=== PATIENT | female | born 1990 | race Caucasian/White ===

== ENCOUNTER 2017-10-25 00:22 | Emergency (ER) | payer MEDICAID, OTHER ==
[2017-10-25 00:30] VITALS: BP 117/67
[2017-10-25] MEDS ORDERED: DIPH/PERTUSS(ACELL)/TETANUS VAC/PF 0.5 ML SYR (>=10YO) IM ONE (01:02)
--- NOTE | 2017-10-25 01:07 | ER Document Report ---
HPI - HPI Pain Level: 3 Notes: Patient is a 26-year-old female no significant past medical history presents ED complaining of right eye pain and redness with decreased vision status post injury around 1500 on 28 Sep (10 hours ago). Patient states that she has an ache and soreness to the eye regardless if she blinks her eyes or eye open. Patient has not noticed any discharge. Patient states that she was messing with her stapler when the spring shot out and hit her directly on her cornea/ pupil. Pt does not wear contacts. Pt does have mild photophobia with the associated symptoms and blurriness. Denies any headache, fever, neck pain, URI , sore throat, chest pain, palpitations, syncope, cough, shortness of breath, wheeze, dyspnea, abdominal pain, nausea/vomiting/diarrhea,dysuria, hematuria, or rash. - ROS Notes: REVIEW OF SYSTEMS: CONSTITUTIONAL : Denies fever, chills, or sweats. Denies recent illness. EENT: see hpi CARDIOVASCULAR: Denies chest pain. Denies palpitations or racing or irregular heart beat. RESPIRATORY: Denies cough, cold, or chest congestion. Denies shortness of breath, difficulty breathing, or wheezing. GASTROINTESTINAL: Denies abdominal pain or distention. Denies nausea, vomiting , or diarrhea. GENITOURINARY: Denies difficulty urinating, painful urination, burning, frequency, blood in urine, or discharge. MUSCULOSKELETAL: Denies back or neck pain or stiffness. Denies joint pain or swelling. SKIN: Denies rash, lesions or sores. NEUROLOGICAL: Denies confusion or altered mental status. Denies passing out or loss of consciousness. Denies dizziness or lightheadedness. Denies headache. Denies weakness or paralysis or loss of use of either side. Denies problems with gait or speech. Denies sensory loss, numbness, or tingling. ALL OTHER SYSTEMS REVIEWED AND NEGATIVE. Dictation was performed using [employer] voice recognition software - CONSTITUTIONAL Constitutional: DENIES: Fever, Chills - EENT EENT: REPORTS: Eye problems - R eye. DENIES: Sore Throat, Ear Pain - NEURO Neurology: DENIES: Headache, Weakness, Vision blurred, Dizzinesss / Vertigo - CARDIOVASCULAR Cardiovascular: DENIES: Chest pain - RESPIRATORY Respiratory: DENIES: Trouble Breathing, Coughing - GASTROINTESTINAL Gastrointestinal: DENIES: Abdominal Pain, Black / Bloody Stools - URINARY Urinary: DENIES: Dysuria, Urgency, Frequency - REPRODUCTIVE Reproductive: DENIES: : - MUSCULOSKELETAL Musculoskeletal: DENIES: Extremity pain Past Medical History - Social History Smoking Status: Unknown if Ever Smoked Family History: Reviewed & Not Pertinent Patient has suicidal ideation: No Patient has homicidal ideation: No Renal/ Medical History: Denies: Hx Peritoneal Dialysis Psychiatric Medical History: Reports: Hx Anxiety, Hx Depression - Immunizations Hx Diphtheria, Pertussis, Tetanus Vaccination: No Vertical Provider Document - CONSTITUTIONAL Agree With Documented VS: Yes Notes: PHYSICAL EXAMINATION: GENERAL: Well-appearing, well-nourished and in no acute distress. HEAD: Atraumatic, normocephalic. EYES: Pupils equal round and reactive to light, extraocular movements intact, sclera anicteric, conjunctiva of rt eye injected. No surrounding cellulitis or erythema. No palp tenderness to the orbit or direct pressure to the eye. + abrasion on wood's lamp/flourescein. No obvious foreign body or other uptake noted. No hyphema. Pressure averages at 15 with 95% on tonometry. ENT: EAC clear b/l. TM's intact b/l without erythema, fluid, or perforation. Nares patent and without discharge. oropharynx clear without exudates. No tonsilar hypertrophy or erythema. Moist mucous membranes. No sinus tenderness. NECK: Normal range of motion, supple without lymphadenopathy LUNGS: Breath sounds clear to auscultation bilaterally and equal. No wheezes rales or rhonchi. HEART: Regular rate and rhythm without murmurs, rubs, gallops. Extremities: No cyanosis, clubbing, or edema b/l. Peripheral pulses 2+. Capillary refill less than 3 seconds. NEUROLOGICAL: Cranial nerves grossly intact. Normal speech, normal gait. Normal sensory, motor exams PSYCH: Normal mood, normal affect. SKIN: Warm, Dry, normal turgor, no rashes or lesions noted. - INFECTION CONTROL TRAVEL OUTSIDE OF THE [place].S. IN LAST 30 DAYS: No - RESPIRATORY O2 Sat by Pulse Oximetry: 98 Course - Re-evaluation Re-evalutation: 10/25/17 01:23 Patient is an afebrile, well-hydrated, 26-year-old female who presents to the ED with a corneal abrasion to the right eye. Vitals are stable. PE is otherwise unremarkable. Tonometry average to 15. PERRLA. I did review case with Dr. Covarrubias and Dr. Dalton (Ophthal). Low suspicion for any retained corneal or lid foreign body, deep space infection including orbital cellulitis/ abscess, acute glaucoma, penetrating globe injury, retinal detachment, meningitis, sepsis, fracture, compartment syndrome. I will send home with a prescription for Cipro drops to use as directed. Conservative measures otherwise for symptoms with proper handwashing. Recheck with your PCM in 3-5 days. F/u tomorrow afternoon at [address] Dalton. Return to the ED with any worsening/concerning symptoms otherwise as reviewed in discharge. Patient is in agreement. - Vital Signs Vital signs: Temp Pulse Resp BP Pulse Ox 98.6 F 70 16 117/67 98 10/25/17 00:26 10/25/17 00:26 10/25/17 00:26 10/25/17 00:26 10/25/17 00:26 Procedures - Eye Procedure Right Time completed: 01:15 Eye Irrigated w/ Saline (ccs): 20 Alcaine Drops Administered: Yes Fluorescein applied: Right Notes: 10/25/17 01:25 I was irrigated and lid was everted and wiped Tetracaine was used for anesthesia Fluorescein stain and Wood's lamp utilized which found a corneal abrasion without any other obvious uptake or foreign body appreciated Tonometry was utilized and found an avg pressure of 15 Eyes picture: 1 - abrasion/uptake 2 - abrasion/uptake Discharge - Discharge Clinical Impression: Corneal abrasion Qualifiers: Encounter type: initial encounter Laterality: right Qualified Code(s): S05.01XA - Injury of conjunctiva and corneal abrasion without foreign body, right eye, initial encounter Condition: Stable Disposition: HOME, SELF-CARE Instructions: Corneal Abrasion ([facility]) Additional Instructions: keep eyes clean Avoid scratching/touching eyes Wash hands regularly Use eye drops as directed Maintain adequate fluid intake tylenol/ibuprofen as needed F/u: with Dr. Dalton (Ophthalmology) tomorrow afternoon around 3pm. Return to the ED with any worsening symptoms and/or development of fever, headache, changes in vision, eye pain, worsening eye redness, redness around the eyes, purulent discharge, sore throat, facial swelling, neck pain/stiffness , chest pain, palpitations, syncope, shortness of breath, trouble breathing, abdominal pain, n/v/d, blood in stool/urine, dysuria, or other worsening symptoms that are concerning to you. Prescriptions: Ciprofloxacin HCl [Ciloxan 0.3% Oph Soln 2.5 ml] 1 - 2 drop OP Q2H #1 bottle Referrals: GLEN DALTON DO [ACTIVE STAFF] - Follow up tomorrow
== END 2017-10-25 01:30 | disposition home or self-care (01) ==
LOC: EEVIPCON 00:22 → ER 00:22
DX: S05.01XA Injury of conjunctiva and corneal abrasion without foreign body, right eye, initial encounter (principal); W20.8XXA Other cause of strike by thrown, projected or falling object, initial encounter; Y93.89 Activity, other specified
CPT/HCPCS: 90471; 90715; 99283

== ENCOUNTER 2019-01-22 14:03 | Emergency (ER) | payer MEDICAID ==
[2019-01-22 14:11] VITALS: BP 122/71
--- NOTE | 2019-01-22 14:40 | ER Document Report ---
ED Medical Screen (RME) - General Chief Complaint: Abdominal Pain Stated Complaint: BACK PAIN Time Seen by Provider: 01/22/19 14:34 Primary Care Provider: YANG VILLATORO PA-C [Primary Care Provider] - Follow up as needed Notes: 28 years old female presents today with vagina discharge which is green yellow discoloration with lower back pain. The last few days. TRAVEL OUTSIDE OF THE U.S. IN LAST 30 DAYS: No - Related Data Allergies/Adverse Reactions: Penicillins Allergy (Verified 10/08/15 06:33) Vomiting Past Medical History Renal/ Medical History: Denies: Hx Peritoneal Dialysis Psychiatric Medical History: Reports: Hx Anxiety, Hx Depression - Immunizations Hx Diphtheria, Pertussis, Tetanus Vaccination: No Physical Exam - Vital signs Vitals: Temp Pulse Resp BP Pulse Ox 98.2 F 64 16 122/71 100 01/22/19 14:08 01/22/19 14:08 01/22/19 14:08 01/22/19 14:08 01/22/19 14:08 Course - Vital Signs Vital signs: Temp Pulse Resp BP Pulse Ox 98.2 F 64 16 122/71 100 01/22/19 14:08 01/22/19 14:08 01/22/19 14:08 01/22/19 14:08 01/22/19 14:08 Doctor's Discharge - Discharge Referrals: YANG VILLATORO PA-C [Primary Care Provider] - Follow up as needed
[2019-01-22 15:07] LABS: APPEARANCE,URINE CLEAR; BILIRUBIN,URINE NEGATIVE (NEGATIVE); COLOR,URINE YELLOW; GLUCOSE, URINE NEGATIVE (NEGATIVE); KETONES,URINE NEGATIVE (NEGATIVE); LEUKOCYTE ESTERASE,URINE NEGATIVE (NEGATIVE); NITRITE,URINE NEGATIVE (NEGATIVE); PROTEIN,URINE NEGATIVE (NEGATIVE); URINE SPECIFIC GRAVITY 1.004; UROBILINOGEN,URINE NEGATIVE mg/dL (<2.0)
[2019-01-22 15:18] LABS: ABSOLUTE LYMPHOCYTES (AUTO) 2.4 10^3/uL (0.5-4.7); ABSOLUTE MONOCYTES (AUTO) 0.6 10^3/uL (0.1-1.4); ABSOLUTE NEUT (AUTO) 6.2 10^3/uL (1.7-8.2); BASOPHILS % (AUTO) 0.5 % (0-2); EOSINOPHILS % (AUTO) 0.3 % (0-6); HEMOGLOBIN 12.4 g/dL (12.0-15.5); LYMPHOCYTES % (AUTO) 25.8 % (13-45); MEAN CORPUSCULAR HEMOGLOBIN 31.3 pg (27.0-33.4); MEAN CORPUSCULAR HGB CONC 35.5 g/dL (32.0-36.0); MEAN CORPUSCULAR VOLUME 88 fl (80-97); MONOCYTES % (AUTO) 6.4 % (3-13); PLATELET COUNT 357 10^3/uL (150-450); RED BLOOD COUNT 3.96 10^6/uL (3.72-5.28); RED CELL DISTRIBUTION WIDTH 12.8 % (11.5-14.0); TOTAL CELLS COUNTED % (AUTO) 100 %; WHITE BLOOD COUNT 9.3 10^3/uL (4.0-10.5)
[2019-01-22 16:03] LABS: URINE AMPHETAMINES SCREEN NEGATIVE; URINE BARBITURATES SCREEN NEGATIVE; URINE BENZODIAZEPINES SCREEN NEGATIVE; URINE COCAINE SCREEN NEGATIVE; URINE MARIJUANA (THC) SCREEN UNCONFIRMED POSITIVE; URINE METHADONE SCREEN NEGATIVE; URINE PHENCYCLIDINE SCREEN NEGATIVE
[2019-01-22 16:19] LABS: ALANINE AMINOTRANSFERASE 16 U/L (9-52); ALBUMIN 4.3 g/dL (3.5-5.0); ALKALINE PHOSPHATASE 39 U/L (38-126); ANION GAP 8 (5-19); ASPARTATE AMINO TRANSFERASE 19 U/L (14-36); BILIRUBIN,DIRECT 0.2 mg/dL (0.0-0.4); BILIRUBIN,TOTAL 0.4 mg/dL (0.2-1.3); BLOOD UREA NITROGEN 6 mg/dL (7-20); CALCIUM 9.7 mg/dL (8.4-10.2); CARBON DIOXIDE 26 mmol/L (22-30); CHLORIDE 108 mmol/L (98-107); POTASSIUM 3.8 mmol/L (3.6-5.0); SODIUM 142.3 mmol/L (137-145); TOTAL PROTEIN 6.6 g/dL (6.3-8.2)
[2019-01-22 16:26] LABS: GLUCOSE 57 mg/dL (75-110)
[2019-01-22 17:00] LABS: T.VAGINALIS (WET MOUNT) NO TRICHOMONAS SEEN; WBCS (WET MOUNT) FEW WBCS SEEN; YEAST (WET MOUNT) NO YEAST SEEN
[2019-01-22 18:25] LABS: CHLAM PCR NOT DETECTED (NOT DETECT); GON PCR NOT DETECTED (NOT DETECT)
--- NOTE | 2019-01-22 19:13 | ER Document Report ---
ED General - General Chief Complaint: Abdominal Pain Stated Complaint: BACK PAIN Time Seen by Provider: 01/22/19 14:34 Primary Care Provider: YANG VILLATORO PA-C [NO LOCAL MD] - Follow up as needed TRAVEL OUTSIDE OF THE [place] IN LAST 30 DAYS: No - HPI Patient complains to provider of: Abdominal pain back pain Notes: Patient coming in for abdominal pain back pain. Patient states that she knows she is also. Patient has been in the past a . Patient states no care at this time. Patient states she does smoke marijuana patient denies any other past medical history does not been taking any vitamins denies any abdominal trauma denies any vaginal bleeding. Patient resting comfortably upon my evaluation. - Related Data Allergies/Adverse Reactions: Penicillins Allergy (Verified 10/08/15 06:33) Vomiting Past Medical History - Social History Smoking Status: Current Every Day Smoker Chew tobacco use (# tins/day): No Frequency of alcohol use: None Drug Abuse: Marijuana Family History: Reviewed & Not Pertinent Patient has suicidal ideation: No Patient has homicidal ideation: No Renal/ Medical History: Denies: Hx Peritoneal Dialysis Psychiatric Medical History: Reports: Hx Anxiety, Hx Depression - Immunizations Hx Diphtheria, Pertussis, Tetanus Vaccination: No Review of Systems - Review of Systems Constitutional: No symptoms reported EENT: No symptoms reported Cardiovascular: No symptoms reported Respiratory: No symptoms reported Gastrointestinal: Abdominal pain Genitourinary: No symptoms reported Female Genitourinary: Vaginal discharge Musculoskeletal: No symptoms reported Skin: No symptoms reported Hematologic/Lymphatic: No symptoms reported Neurological/Psychological: No symptoms reported -: Yes All other systems reviewed and negative Physical Exam - Vital signs Vitals: Temp Pulse Resp BP Pulse Ox 98.2 F 64 16 122/71 100 01/22/19 14:08 01/22/19 14:08 01/22/19 14:08 01/22/19 14:08 01/22/19 14:08 Interpretation: Normal - General General appearance: Appears well, Alert - HEENT Head: Normocephalic, Atraumatic Eyes: Normal Pupils: PERRL - Respiratory Respiratory status: No respiratory distress Chest status: Nontender Breath sounds: Normal Chest palpation: Normal - Cardiovascular Rhythm: Regular Heart sounds: Normal auscultation Murmur: No - Abdominal Inspection: Normal Distension: No distension Bowel sounds: Normal Tenderness: Nontender Organomegaly: No organomegaly - Back Back: Normal, Nontender - Extremities General upper extremity: Normal inspection, Nontender, Normal color, Normal ROM, Normal temperature General lower extremity: Normal inspection, Nontender, Normal color, Normal ROM, Normal temperature, Normal weight bearing. No: Edilson's sign - Neurological Neuro grossly intact: Yes Cognition: Normal Orientation: AAOx4 [place] Coma Scale Eye Opening: Spontaneous Christoph Coma Scale Verbal: Oriented [place] Coma Scale Motor: Obeys Commands Christoph Coma Scale Total: 15 Speech: Normal Motor strength normal: LUE, RUE, LLE, RLE Sensory: Normal - Psychological Associated symptoms: Normal affect, Normal mood - Skin Skin Temperature: Warm Skin Moisture: Dry Skin Color: Normal Course - Re-evaluation Re-evalutation: 01/22/19 22:36 The patient presents with abdominal pain without signs of peritonitis or other life-threatening or serious etiology. The patient appears stable for discharge and has been instructed to return immediately if the symptoms worsen in any way, or in 8-12hr if not improved for re-evaluation. The patient has been instructed to return if the symptoms worsen or change in any way. I did explain the ultrasound to the patient at bedside and answered all questions. vitamins Reglan was given for the patient during follow-up with the health department and [facility]. - Vital Signs Vital signs: Temp Pulse Resp BP Pulse Ox 98.2 F 64 16 122/71 100 01/22/19 14:08 01/22/19 14:08 01/22/19 14:34 01/22/19 14:08 01/22/19 14:08 - Laboratory Result Diagrams: 01/22/19 14:48 01/22/19 14:58 Laboratory results interpreted by me: 01/22/19 01/22/19 01/22/19 14:20 14:48 14:48 Hct 35.0 L Chloride BUN Glucose POC Glucose Beta HCG, Quant 892253.00 H Urine HCG, Qual POSITIVE H 01/22/19 01/22/19 14:58 17:00 Hct Chloride 108 H BUN 6 L Glucose 57 L POC Glucose 133 H Beta HCG, Quant Urine HCG, Qual Discharge - Discharge Clinical Impression: Qualifiers: Weeks of gestation: less than 8 weeks Qualified Code(s): Z3A.01 - Less than 8 weeks gestation of Condition: Good Disposition: HOME, SELF-CARE Instructions: Abdominal Pain ([facility]), Ob-Surveillance S[facility], Pelvic Pain in ([facility]) Additional Instructions: Your ultrasound today shows a 7-week fetus. Your testing returned negative for any signs of gonorrhea chlamydia trichomonas or yeast. More than likely the discharge that you are experiencing is physiologic normal discharge from being . I would highly recommend she follow-up with your primary care physician I recommend following up with health department or [facility] clinic listed. Please take vitamins. Please note that smoking cigarettes or marijuana can damage your fetus. I would highly recommend holding all illicit substances and tobacco use. Please make sure you drink plenty of fluids to stay well-hydrated return to the ER for any other concerns. Prescriptions: Metoclopramide HCl [Reglan] 5 mg PO Q6 #30 tablet Prenat 115/Iron Fum/Folic/Dss [ 19 Tablet] 1 each PO DAILY #30 tablet Forms: Return to Work Referrals: YANG VILLATORO PA-C [NO LOCAL MD] - Follow up as needed
--- NOTE | 2019-01-22 19:41 | RADIOLOGY REPORT (SQ) ---
EXAM DESCRIPTION: U/S OB TRANSVAG W/DOPPLER COMPLETED DATE/TIME: 01/22/2019 7:11 pm REASON FOR STUDY: +preg abdominal pain COMPARISON: None. TECHNIQUE: Transvaginal static and realtime grayscale images acquired of the pelvis. Additional lida cted spectral and color Doppler images recorded. All images stored on PACs. bHCG: Not available. CLINICAL DATES: LMP unknown. LIMITATIONS: None. FINDINGS: FETUS: Single Living intrauterine . ULTRASOUND EGA: 7 weeks 6 days ULTRASOUND BRAYDEN: 09/04/2019 EFW: Not applicable less than 20 weeks. CRL: 1.5 cm. FHR: 162. Beats per minute. SURVEY: Too early to assess. AMNIOTIC FLUID: Adequate amount. PLACENTA: Not yet developed due to early gestation. SUBCHORIONIC BLEED: No SIZE OF BLEED: Not applicable. UTERUS: No masses or anomalies. 11.2 x 7.5 x 6.2 cm. CERVICAL LENGTH: 2.6 cm. Closed. RIGHT ADNEXA: Normal ovary with normal vascular flow. 3.9 x 2.5 x 2.3 cm. There is a 1.6 cm cyst. No adnexal free fluid. No adnexal masses. LEFT ADNEXA: Normal ovary with normal vascular flow. 3.3 x 1.8 x 1.7 cm. No adnexal free fluid. No adnexal masses. FREE FLUID: None. OTHER: No other significant finding. IMPRESSION: LIVING INTRAUTERINE . EGA 7 weeks 6 days. Trimester of : First - 0 to 13 weeks. TECHNICAL DOCUMENTATION: JOB ID: [id number]- All Rights Reserved Reading location - IP/workstation name: [email or web address]
== END 2019-01-22 20:14 | disposition home or self-care (01) ==
LOC: ER 14:03
DX: O26.91 Pregnancy related conditions, unspecified, first trimester (principal); M54.9 Dorsalgia, unspecified; R10.9 Unspecified abdominal pain; O99.331 Smoking (tobacco) complicating pregnancy, first trimester; F17.200 Nicotine dependence, unspecified, uncomplicated; Z88.0 Allergy status to penicillin; Z3A.01 Less than 8 weeks gestation of pregnancy
CPT/HCPCS: 36415; 76817; 80053; 80307; 81001; 81025; 82962; 84702; 85025; 87210; 87491; 87591; 93976; 99284

== ENCOUNTER 2019-05-08 15:50 | Emergency (ER) | payer MEDICAID ==
[2019-05-08] MEDS ORDERED: HYDROCODONE/ACETAMINOPHEN 5-325 MG TABLET PO ONE (16:54)
[2019-05-08] MEDS ORDERED: PENICILLIN V POTASSIUM 500 MG TABLET PO ONE (16:54)
[2019-05-08] MEDS ORDERED: IBUPROFEN 600 MG TABLET PO ONE (16:54)
--- NOTE | 2019-05-08 16:59 | ER Document Report ---
ED General - General Chief Complaint: Toothache Stated Complaint: JAW PAIN Time Seen by Provider: 05/08/19 16:44 Primary Care Provider: ALENA ONTIVEROS MD [Primary Care Provider] - Follow up as needed Mode of Arrival: Ambulatory Information source: Patient, [facility] Records Notes: 28-year-old female presents with left upper tooth pain that started 14 hours prior to arrival waking her from sleep. Patient describes the pain as throbbing, aching and worse with drinking cold fluids. Patient denies any fever, chills, sore throat, difficulty swallowing, ear pain. TRAVEL OUTSIDE OF THE [place] IN LAST 30 DAYS: No - HPI Onset: Yesterday Onset/Duration: Sudden Quality of pain: Achy, Throbbing Severity: Moderate Pain Level: 2 Associated symptoms: denies: Nonproductive cough, Earache, Fever, Nausea, Vomiting, Shortness of breath, Sore throat Exacerbated by: Food, Other - Cold fluid Relieved by: Denies Similar symptoms previously: Yes Recently seen / treated by doctor: No - Related Data Allergies/Adverse Reactions: No Known Allergies Allergy (Unverified 05/08/19 15:52) Past Medical History - General Information source: Patient - Social History Smoking Status: Current Every Day Smoker Cigarette use (# per day): Yes - 10 Smoking Education Provided: Yes - Smoking cessation counseling was provided for 4 minutes at the bedside Frequency of alcohol use: Social Drug Abuse: None Lives with: Family Family History: Reviewed & Not Pertinent Patient has suicidal ideation: No Patient has homicidal ideation: No Renal/ Medical History: Denies: Hx Peritoneal Dialysis Psychiatric Medical History: Reports: Hx Anxiety, Hx Depression - Immunizations Hx Diphtheria, Pertussis, Tetanus Vaccination: No Review of Systems - Review of Systems Notes: REVIEW OF SYSTEMS: CONSTITUTIONAL : Denies fever, chills, or sweats. Denies recent illness. Denies weight loss, recent hospitalizations. EENT: Denies visual changes, eye pain. Denies sore throat, oral lesions, difficulty swallowing. CARDIOVASCULAR: Denies chest pain. Denies palpitations. Denies lower extremity edema. RESPIRATORY: Denies cough. Denies shortness of breath, wheezing. GASTROINTESTINAL: Denies abdominal pain or distention. Denies nausea, vomiting, or diarrhea. Denies blood in vomitus, stools, or per rectum. Denies black, tarry stools. Denies constipation. GENITOURINARY: Denies difficulty urinating, painful urination, frequency, blood in urine, or vaginal discharge. MUSCULOSKELETAL: Denies back or neck pain or stiffness. Denies joint pain or swelling. SKIN: Denies rash, lesions or sores. HEMATOLOGIC : Denies easy bruising or bleeding. LYMPHATIC: Denies swollen glands. NEUROLOGICAL: Denies confusion or altered mental status. Denies loss of consciousness. Denies dizziness or lightheadedness. Denies headache. Denies weakness or paralysis. Denies problems difficulty with ambulation, slurred speech. Denies sensory loss, numbness, or tingling. Denies seizures. PSYCHIATRIC: Denies anxiety or stress. Denies depression, suicidal ideation, or homicidal ideation. Denies visual or auditory hallucinations. Physical Exam - Vital signs Vitals: Temp Pulse Resp BP Pulse Ox 98.1 F 64 14 130/78 H 100 05/08/19 16:03 05/08/19 16:05/08/19 16:05/08/19 16:05/08/19 16:03 - Notes Notes: PHYSICAL EXAMINATION: GENERAL: Well-appearing, well-nourished and in no acute distress. HEAD: Atraumatic, normocephalic. EYES: Pupils equal round and reactive to light, extraocular movements intact, conjunctiva are normal. ENT: Nares patent, oropharynx clear without exudates. Moist mucous membranes. Dental caries of tooth 13 and 14. No associated dental abscess, no dental fracture. No sublingual edema no necrotizing gingivitis. NECK: Normal range of motion, supple without lymphadenopathy LUNGS: Breath sounds clear to auscultation bilaterally and equal. No wheezes rales or rhonchi. HEART: Regular rate and rhythm without murmurs ABDOMEN: Soft, nontender, nondistended abdomen. No guarding, no rebound. No masses appreciated. Female : deferred Musculoskeletal: Normal range of motion, no pitting or edema. No cyanosis. NEUROLOGICAL: Cranial nerves grossly intact. Normal speech, normal gait. Normal sensory, motor exams PSYCH: Normal mood, normal affect. SKIN: Warm, Dry, normal turgor, no rashes or lesions noted. Course - Re-evaluation Re-evalutation: Temp Pulse Resp BP Pulse Ox 98.1 F 64 14 130/78 H 100 05/08/19 16:03 05/08/19 16:03 05/08/19 16:03 05/08/19 16:03 05/08/19 16:03 05/08/19 16:57 28-year-old female presents with 1 day of dental pain. Vital signs reviewed and within normal limits. Patient does not appear toxic or dehydrated. She is in no acute distress. No evidence of necrotizing gingivitis, Winston's angina, dental abscess. Patient was started on Pen-Pen VK, Motrin. Advised to follow- up with dentistry. 05/08/19 16:59 After performing a Medical Screening Examination, I estimate there is LOW risk for a DEEP SPACE INFECTION (e.g., RAUL'S ANGINA OR RETROPHARYNGEAL ABSCESS), MENINGITIS, INTRACRANIAL HEMORRHAGE, or AIRWAY COMPROMISE, thus I consider the discharge disposition reasonable. Also, there is no evidence or peritonitis, sepsis, or toxicity. I have reevaluated this patient multiple times and no significant life threatening changes are noted. The patient and I have discussed the diagnosis and risks, and we agree with discharging home with close follow-up with the understanding that symptoms and presentations can change. We also discussed returning to the Emergency Department immediately if new or worsening symptoms occur. We have discussed the symptoms which are most concerning (e.g., changing or worsening pain, trouble swallowing or breathing, neck stiffness or fever) that necessitate immediate return. - Vital Signs Vital signs: Temp Pulse Resp BP Pulse Ox 98.1 F 64 14 130/78 H 100 05/08/19 16:03 05/08/19 16:03 05/08/19 16:03 05/08/19 16:03 05/08/19 16:03 Discharge - Discharge Clinical Impression: Odontalgia Condition: Good Disposition: HOME, SELF-CARE Instructions: [facility], Penicillin V K ([facility]), Toothache ([facility]) Additional Instructions: Follow up with your [id number] hours for further care or return to the ED IMMEDIATELY if symptoms worsen or you have any concerns. If you cannot afford to follow up with your primary care physician a list of low cost clinics have been provided at the end of your discharge papers as well. Most prescribed medications have multiple side effects. The safest thing to do is when filling your prescription speak to your pharmacist regarding possible interactions with your normal home medications and over the counter medications such as Ibuprofen, Tylenol, Benadryl. If you experience any symptoms that cause you discomfort or concern you should discontinue the medication immediately and return to the emergency room or call your primary care physician. You have been seen for dental pain. It is very important that you follow-up with a dentist for definitive care. Please return if you develop fever greater than 101, swelling in your face, vomiting, difficulty breathing or swallowing, or any other symptoms that are concerning to you. For pain you should take ibuprofen 600 mg every 6 hours as needed. There are some dental clinics at reduced rate. However are not in town and require travel. In [place]: [facility] will be opening a free dental clinic. Phone: In [place]: 1.[facility] (60 miles away) [address] [place] [address] [facility] For appointments, call on Mondays between the hours of 9 AM and noon. [address]. [facility] (60 miles) [address] [phone] In [place]: [facility] (42 miles away) [address] [place] [address] In [place]: [facility] [place] [facility] (53 miles away) [address] [place] [address] In [facility] clinic (173 miles away) [address] [place] [address] [facility] Referrals: ALENA ONTIVEROS MD [Primary Care Provider] - Follow up as needed
[2019-05-08 17:26] VITALS: BP 117/75
== END 2019-05-08 17:26 | disposition home or self-care (01) ==
LOC: ER 15:50
DX: K02.9 Dental caries, unspecified (principal); K08.89 Other specified disorders of teeth and supporting structures; F17.210 Nicotine dependence, cigarettes, uncomplicated; Z71.6 Tobacco abuse counseling
CPT/HCPCS: 99406; 99283; J3490 ×2

== ENCOUNTER 2020-02-10 12:23 | Emergency (ER) | payer SELFPAY ==
--- NOTE | 2020-02-10 13:50 | ER Document Report ---
ED General - General Chief Complaint: Sore Throat Stated Complaint: SORE THROAT/HARD TO SWOLLEN/VAGINAL DISCHARGE Primary Care Provider: ALENA ONTIVEROS MD [Primary Care Provider] - Follow up as needed Notes: Patient is a 29-year-old white female with no significant past medical history presents to the emergency department with a chief complaint of swollen area to the back of the tongue that is somewhat painful. She states she was concerned given her symptoms, googled them and feels that she has thrush. She states she does notice a very faint white film on her tongue and is sure that she has thrush. Patient denies history of diabetes, AIDS or HIV, oral medications such as inhaled corticosteroids. Denies any immune compromising conditions. She states her throat is not very sore more or less the back of the tongue, states when she looked in the mirror she noticed the back of the tongue appeared to be swollen. She was concerned for possible infectious etiology so she came for evaluation. She denies any fever, chills or night sweats. No difficulty breathing or trouble with secretions. TRAVEL OUTSIDE OF THE [place] IN LAST 30 DAYS: No - Related Data Allergies/Adverse Reactions: No Known Allergies Allergy (Unverified 05/08/19 15:52) Past Medical History - Social History Smoking Status: Current Every Day Smoker Chew tobacco use (# tins/day): No Frequency of alcohol use: Rare Drug Abuse: None Family History: Reviewed & Not Pertinent Patient has suicidal ideation: No Patient has homicidal ideation: No Renal/ Medical History: Denies: Hx Peritoneal Dialysis Psychiatric Medical History: Reports: Hx Anxiety, Hx Depression - Immunizations Hx Diphtheria, Pertussis, Tetanus Vaccination: No Review of Systems - Review of Systems Constitutional: No symptoms reported EENT: Throat pain, Mouth pain -: Yes All other systems reviewed and negative Physical Exam - Vital signs Vitals: Temp Pulse Resp BP Pulse Ox 97.5 F 68 16 101/72 100 02/10/20 13:41 02/10/20 13:41 02/10/20 13:41 02/10/20 13:41 02/10/20 13:41 - General General appearance: Appears well, Alert In distress: None - HEENT Head: Normocephalic, Atraumatic Eyes: Normal Conjunctiva: Normal Extraocular movements intact: Yes Eyelashes: Normal Pupils: PERRL Ears: Normal External canal: Normal Tympanic membrane: Normal Sinus: Normal Nasal: Normal Mouth/Lips: Normal Mucous membranes: Normal, Moist Pharynx: Other - Visible fusiform papillated to the posterior tongue. No oral lesions or ulcerations appreciated. Mildly enlarged tonsils bilaterally without erythema or exudate. Uvula midline without edema or erythema. Airway patent. Patient handling secretions well. No sublingual or submental swelling. No trismus. Neck: Lymphadenopathy - Nontender - Respiratory Respiratory status: No respiratory distress Chest status: Nontender Breath sounds: Normal Chest palpation: Normal - Cardiovascular Rhythm: Regular Heart sounds: Normal auscultation - Neurological Neuro grossly intact: Yes Cognition: Normal Orientation: AAOx4 - Psychological Associated symptoms: Normal affect, Normal mood - Skin Skin Temperature: Warm Skin Moisture: Dry Skin Color: Normal Course - Re-evaluation Re-evalutation: 02/10/20 15:41 Patients strep and mono test negative. Discussed with her the findings in the back of the tongue are consistent with a fusiform papillary and not an abnormality. She did have some faint areas of leukoplakia and gingivitis. No evidence of oral thrush. Patient has no known history of diabetes AIDS or HIV immunosuppressive conditions or usage of oral inhaled corticosteroids. Will provide Magic mouthwash for symptomatic support. We discussed smoking cessation and follow-up with dentist for further evaluation. Advise she return here or any ER immediately with any new, persistent or worsening symptoms. She verbalized understood and agreed. - Vital Signs Vital signs: Temp Pulse Resp BP Pulse Ox 97.5 F 68 16 101/72 100 02/10/20 13:41 02/10/20 13:41 02/10/20 13:41 02/10/20 13:41 02/10/20 13:41 Discharge - Discharge Clinical Impression: Gingivitis, Oral leukoplakia Condition: Stable Disposition: HOME, SELF-CARE Additional Instructions: Follow-up with your regular doctor in 2 to 3 days for reevaluation. Return here or any ER immediately with any new, persistent or worsening symptoms. Prescriptions: Nystatin/Dexameth/Diphen [Magic Mouthwash (Omh Formula) Susp] 5 ml PO QID #120 ml Referrals: ALENA ONTIVEROS MD [Primary Care Provider] - Follow up as needed
[2020-02-10 15:42] VITALS: BP 101/75
== END 2020-02-10 15:43 | disposition home or self-care (01) ==
LOC: ER 12:23
DX: K13.21 Leukoplakia of oral mucosa, including tongue (principal); K05.10 Chronic gingivitis, plaque induced; R07.0 Pain in throat; F17.200 Nicotine dependence, unspecified, uncomplicated; J35.1 Hypertrophy of tonsils
CPT/HCPCS: 36415; 86308; 87070; 87880; 99282